=== PATIENT | female | born 1970 | race African-American/Black ===

== ENCOUNTER 2017-06-12 20:46 | Emergency (ER) | payer OTHER ==
[~2017-06-12] VITALS: Ht 157.5 cm; Wt 72.0 kg
[2017-06-12] MEDS ORDERED: IMITREX50 MG PO (21:50)
[2017-06-12 23:36] VITALS: BP 120/84
== END 2017-06-12 23:37 | disposition home or self-care (01) ==
LOC: EME 20:46
DX: G43.909 Migraine, unspecified, not intractable, without status migrainosus (principal); E86.0 Dehydration; R11.0 Nausea; F17.200 Nicotine dependence, unspecified, uncomplicated
CPT/HCPCS: 99281; 99285; J0780; J7040